=== PATIENT | male | born 1970 | race Asian ===

== ENCOUNTER 2019-04-22 19:02 | Emergency (ER) | payer MEDICAID ==
[~2019-04-22] VITALS: Ht 172.7 cm; Wt 68.0 kg
--- NOTE | 2019-04-22 19:08 | NUR ---
"[id number] FOR N/V X1 EPISODE S/P DONATING 200CC BLOOD, 4MG ZOFRAN GIVEN PER, BG 94 PER EMS" PT AAOX4, -SOB, NADB NO KD, VSS ,PENDING MD RENO
[2019-04-22] MEDS ORDERED: IV NS 0.9% 1,000 ML BAG IV ONE (19:30)
[2019-04-22] MEDS ORDERED: ONDANSETRON HCL/PF 4 MG/2 ML VIAL IVP ONE (19:30)
[2019-04-22] MEDS ORDERED: ONDANSETRON HCL/PF 4 MG/2 ML VIAL ONE (19:34)
[2019-04-22 19:35] LABS: BASOPHILS # (AUTO) 0.1 /CMM (0.0-0.2); BASOPHILS % (AUTO) 0.8 % (0.0-2.0); EOSINOPHILS % (AUTO) 1.2 % (0.0-6.0); HEMATOCRIT 43 % (39-51); HEMOGLOBIN 13.6 g/dL (13.5-17.5); LYMPHOCYTES # (AUTO) 2.2 /CMM (0.8-4.8); LYMPHOCYTES % (AUTO) 18.6 % (20.0-44.0); MEAN CORPUSCULAR HGB CONC 31 g/dl (31.0-36.0); MEAN CORPUSCULAR VOLUME 70 fL (80-96); MONOCYTES # (AUTO) 0.9 /CMM (0.1-1.30); MONOCYTES % (AUTO) 7.5 % (2.0-12.0); NEUTROPHILS # (AUTO) 8.5 /CMM (1.8-8.9); NEUTROPHILS % (AUTO) 71.9 % (43.0-81.0); PLATELET COUNT (AUTO) 258 /CMM (150-450); RED BLOOD CELL COUNT(AUTO) 6.17 MIL/uL (4.5-6.0); WHITE BLOOD COUNT (AUTO) 11.8 K/uL (4.3-11.0)
[2019-04-22 20:35] LABS: CALCIUM, SERUM 8.7 mg/dL (8.5-10.1); CREATININE 0.9 mg/dL (0.6-1.3); POTASSIUM 3.3 mmol/L (3.5-5.1)
[2019-04-22] MEDS ORDERED: POTASSIUM CHLORIDE 20 MEQ TAB.PRT.SR PO ONE ×2 (21:25→21:30)
[2019-04-22 21:30] VITALS: BP 100/82
--- NOTE | 2019-04-22 22:42 | NUR ---
Patient discharged to home in stable condition. Written and verbal after care instructions given. Patient verbalizes understanding of instruction. IV removed. Catheter intact and site benign. Pressure and 4x4 applied to site. No bleeding noted.
== END 2019-04-22 22:42 | disposition home or self-care (01) ==
LOC: ER 19:04
DX: R53.1 Weakness (principal); R11.0 Nausea; E87.6 Hypokalemia
CPT/HCPCS: 36415; 80048; 85025; 93005; 96374; 99284; J2405; J7030; 82962-TC